=== PATIENT | female | born 1990 | race Caucasian/White ===

== ENCOUNTER 2019-03-19 13:29 | Outpatient (CLI) | payer OTHER, SELFPAY ==
--- NOTE | 2019-03-19 14:00 | ECG_ITS ---
Measurements Intervals [place] Rate: 80 P: 32 DC: 128 QRS: 59 QRSD: 81 T: 46 QT: 345 QTc: 399 Interpretive Statements SINUS RHYTHM NORMAL ECG Electronically Signed On 03-19-2019 16:05:09 ENVIR[employer]MENT[employer] SPECIALIST by Carl Dunlap D.O.
[2019-03-19 14:46] LABS: Blood Urea Nitrogen 18 mg/dL (7-17); Calcium 9.4 mg/dL (8.4-10.2); Carbon Dioxide 30 mmol/L (22-30); Chloride 97 mmol/L (98-107); Estimated Glomerular Filt Rate > 60; Glucose 47 mg/dL (65-105); Potassium 3.9 mmol/L (3.4-5.0); Sodium 137 mmol/L (137-145)
== END 2019-03-19 13:30 | disposition home or self-care (01) ==
PROVIDERS: Visit Provider Anesthesiology
DX: Z01.818 Encounter for other preprocedural examination (principal); E10.9 Type 1 diabetes mellitus without complications
CPT/HCPCS: 36415; 80048; 93005

== ENCOUNTER 2019-03-26 02:14 | Day surgery (SDC) | payer OTHER, SELFPAY ==
[2019-03-13 14:30] VITALS: BMI 25.7
[2019-03-26 07:24] LABS: Glucose Point of Care 217 (65-105)
[2019-03-26 07:43] VITALS: BP 115/76; PULSE 97; RESP 14; TEMP 36.7; O2SAT 100; BMI 25.7
[2019-03-26] MEDS: LACTATED RINGERS 1,000 ML 30 ML IV CONT (07:52)
--- NOTE | 2019-03-26 08:00 | WPDANESEPPF ---
Anes - Initial Pre Proc Eval Procedure: Operation Date: 03/26/19 08:45 Proposed Procedures p Loop Electrical Excision Procedure - Katerina Smiley MD s Hysteroscopy, Removal And Reinsertion Of Intrauterine Device - Katerina Smiley MD Date/Time: 03/26/19 08:00 Surgeon: Katerina Smiley MD Pre Op Diagnosis: cervical dysplasia Patient Data Age: 28 Gender: F Height: 5 ft 4 in Weight: 68 kg Last Vital Signs Temp 36.7 C 03/26/19 07:43 Pulse 97 03/26/19 07:43 Resp 14 03/26/19 07:43 BP 115/76 03/26/19 07:43 Pulse Ox 100 03/26/19 07:43 Allergies Allergy/AdvReac Type Severity Reaction Status Date / Time No Known Allergies Allergy Verified 03/13/19 14:33 Home Medications Medication Instructions Recorded Confirmed Type hydroxychloroquine 400 mg PO DAILY 03/13/19 03/26/19 History insulin glargine [Basaglar KwikPen 40 unit SUBCUT DAILY 03/13/19 03/26/19 History U-100 Insulin] insulin lispro [Humalog U-100 SUBCUT DIRECTED 03/13/19 History Insulin] mv,Ca,ir,Lu-MW-lhs-gel-venancio-PAB 1 cap PO DAILY 03/13/19 03/26/19 History [Body, Hair, Skin and Nails] spironolactone 100 mg PO DAILY 03/13/19 03/26/19 History Laboratory Tests 03/26/19 07:22 POC Capillary Glucose 217 mg/dl H mg/dl (65-105) Patient hx anesthesia problems: none Family hx anesthesia problems: none [facility] Past Medical History Medical History (Updated 03/26/19 @ 08:00 by Glynn Haynes MD) Diabetes Anes - Eval Final PreProcedure Day of Procedure 03/26/19 08:00 Patient weight: normal Heart: regular rate and rhythm Lungs: clear to auscultation Airway: Mallampati scale class 1 Neurological: alert and oriented Last oral intake: >/= 8 hours ASA classification: II Emergent: no Anesthetic plan: proceed Anesthesia type and monitoring: general GIVS and standard monitoring Informed Consent: The patient's anesthetic plan and its attendant risks and benefits were discussed with the patient/family/POA. Questions were solicited and answers provided to the satisfaction of the patient/family/POA.
--- NOTE | 2019-03-26 08:23 | WPDHPUPDATE1 ---
History and Physical Update Update Date/Time: 03/26/19 08:23 History and Physical has been reviewed, including an updated exam of the patient. There are NO changes in the patient's condition. Risks, benefits, and alternatives have been discussed and questions answered. Patient agrees to proceed with procedure.
[2019-03-26] MEDS: IBUPROFEN IV 800 MG/200 ML 800 MG/200 ML BAG 400 MG IVPB (08:41)
[2019-03-26] MEDS: LIDO 1%/EPINEPHRINE 1:100,000 20 ML VIAL INFILTRATE (09:09)
[2019-03-26 09:23] VITALS: BP 106/53; PULSE 94; RESP 16; O2SAT 96
[2019-03-26 09:35] VITALS: BP 108/57; PULSE 88
[2019-03-26 09:50] VITALS: BP 109/67; PULSE 83
[2019-03-26 09:52] LABS: Glucose Point of Care 237 (65-105)
[2019-03-26] MEDS: ONDANSETRON INJ 4 MG/2 ML VIAL IV PUSH (10:01)
[2019-03-26 10:20] VITALS: BP 109/67; PULSE 83
--- NOTE | 2019-03-26 10:33 | SUR.PHASEII ---
0950: BG was 237. Patient will treat accordingly after discharge.
--- NOTE | 2019-04-21 17:42 | P.OP_ITS ---
Procedure Note - Detailed Date of procedure: 03/26/19 Pre-op diagnosis: cervical dysplasia Mirena IUD Post-op diagnosis: same Procedure performed: LEEP procedure, removal and reinsertion same IUD Description of procedure: patient was taken to the operating room. She was prepped and draped in the dorsal lithotomy position. A speculum was placed in the vagina. The cervix was grasped with a tenaculum. The cervix was injected at 3 and 9:00 a.m. with 1% lidocaine. A hysteroscope was inserted in the IUD was observed. A packing forceps was used to grasp the IUD. It was removed. Lugol solution was then painted onto the cervix. Using a large electrode a LEEP procedure was performed. This was done with 1 pass the electrode. It appeared to encompass all the affected area outlined using the Lugol solution. The periphery of the resected area was cauterized thoroughly with ball cautery. The cut surface of the cervix was also cauterized with ball cautery thoroughly. When that was completed the IUD was reinserted using the packing forceps. It was placed in the intrauterine cavity. A hysteroscope was then used to confirm the proper placement of the IUD. It was well placed with each arm in the cornu of the uterus . The procedure was then terminated. These speculum and tenaculum were withdrawn. At the end of the procedure the IUD string was visible. The patient tolerated procedure well. She was taking cover room stable condition. Anesthesia: MAC Surgeon: Katerina Smiley MD Estimated blood loss (mL): 25 Drains: No Packing: No Pathology: yes Complications: No immediate complications Condition: stable Disposition: same day Findings: the vulva vagina and cervix were all grossly normal. The intraut erine cavity appeared normal on hysteroscopic exam.
== END 2019-03-26 10:43 | disposition home or self-care (01) ==
PROVIDERS: PCP Internal Medicine Endocrinology, Diabetes & Metabolism; Visit Provider Obstetrics & Gynecology
PROC: 0UBC7ZZ Excision of Cervix, Via Natural or Artificial Opening (ICD-10-PCS; CPT 57522; principal; 2019-03-26 08:45)
PROC: 0U5B8ZZ Destruction of Endometrium, Via Natural or Artificial Opening Endoscopic (ICD-10-PCS; CPT 58563; 2019-03-26 08:45)
DX: N87.0 Mild cervical dysplasia (principal); Z30.433 Encounter for removal and reinsertion of intrauterine contraceptive device; E11.9 Type 2 diabetes mellitus without complications; Z79.4 Long term (current) use of insulin
CPT/HCPCS: 57522; 58300; 58562; 88305; A9270; J1741; J2250; J2405; J2704; J3010; J7030; J7120